=== PATIENT | female | born 1955 ===

== ENCOUNTER 2017-04-01 06:00 | Day surgery (SDC) | payer MEDICARE, MEDICAID ==
[2017-03-22 11:41] VITALS: BMI 25.2
[2017-04-01 06:26] VITALS: RESP 20
--- NOTE | 2017-04-01 06:37 | CP.PCM.PN ---
Subjective - Date & Time of Evaluation Date of Evaluation: 04/01/17 Time of Evaluation: 06:45 - Subjective Subjective: 62 year old female present for surgical correction for painful right ankle, secondary to traumatic sprain. Pt has failed refief with conservative methods and is in need for surgical intervention. Pt grades pain a 6/10 at its peak during ambulation and a 4/10at rest, all pain localized to lateral ankle. Pt states she has been NPO since 11:30 pm. Pt denies recent f/c/cp/sob/n/v. Objective - Vital Signs/Intake and Output Vital Signs (last 24 hours): Temp Pulse Resp BP Pulse Ox 98.6 F 76 20 147/81 100 04/01/17 06:25 04/01/17 06:27 04/01/17 06:25 04/01/17 06:25 04/01/17 06:25 - Constitutional Appears: Well, Non-toxic, No Acute Distress - Head Exam Head Exam: ATRAUMATIC, NORMAL INSPECTION - Eye Exam Eye Exam: EOMI, Normal appearance - ENT Exam ENT Exam: Mucous Membranes Moist, Normal Exam - Respiratory Exam Respiratory Exam: NORMAL BREATHING PATTERN. absent: Chest Wall Tenderness, Decreased Breath Sounds - Cardiovascular Exam Cardiovascular Exam: REGULAR RHYTHM. absent: Tachycardia - Extremities Exam Additional comments: Right leg focused. VASC: DP an PT pulses are fully palpable graded 3/4. Temperature runs warms to cool within normal limits. Localized non-pitting edema at the level of the ankle joint. DERM: No open wounds lesions, hyper-pigmentations, or inter-digital macerations. NEURO: Protective sensation grossly intact. MUSK: Tenderness to light palpation along lateral fibula and along Calcanela- fibular ligament course. Pain illicited on stress inversion of lateral ankle. Mild ankle end range of motion. - Neurological Exam Neurological Exam: Alert, Awake, Oriented x3 - Psychiatric Exam Psychiatric exam: Normal Affect, Normal Mood Assessment and Plan - Assessment and Plan (Free Text) Assessment: 62 year old female with ankle joint synovitis and lateral ankle instability. Plan: Pt was seen and examined in SDS Pt NPO status was confirmed All Pre-op testing and clearance was in the chart Pt has exhausted all conservative treatment at this time and is opting for surgical intervention Pt was explained procedure and post-operative course All pt's questions were answered to satisfaction No guarantees were made Pt understands all risks, benefits and complications of procedure Pt will follow-up with Dr. Suárez.
--- NOTE | 2017-04-01 06:37 | CP.SDSHP ---
Same Day Surgery H & P - History Proposed Procedure: Right Ankle arthroscopy, Modified Brostrom stabalization, and Peroneal Repair Pre-Op Diagnosis: Right ankle lateral ankle stablization. - Previous Medical/Surgical History Cardiac: Hypertension Pulmonary: Asthma Endocrine/Metabolic: Obesity, Other (Hyperlipedemia, hypercholesterolemia) Pain: 6.Severe Pain Previous Surgical History: Fallopian Tubual ligation - Allergies Allergies: Allergies No Known Allergies Allergy (Verified 03/25/17 06:40) - Current Medications Current Medications: Plavix Simvistatin Losartan - Physical Exam Vital Signs: Vital Signs 04/01/17 04/01/17 06:25 06:27 Temperature 98.6 F Pulse Rate 76 76 Respiratory 20 Rate Blood Pressure 147/81 O2 Sat by Pulse 100 Oximetry Mental Status: Alert & Oriented x3 Neuro: WNL Heart: WNL Lungs: WNL GI: WNL - {Optional Preform as Required} Integument: WNL Ortho: Other (Tenderness to light palpation along lateral fibula and along Calcanela-fibular ligament course. Pain illicited on stress inversion of lateral ankle. Mild ankle end range of motion.) - Impression Impression: Pt was seen and examined in SDS. Pt NPO status was confirmed. All Pre-op testing and clearance was in the chart. Pt has exhausted all conservative treatment at this time and is opting for surgical intervention. Pt was explained procedure and post-operative course. All pt's questions were answered to satisfaction. No guarantees were made. Pt understands all risks, benefits and complications of procedure. Pt will follow-up with Dr. Suárez. Pt. Evaluated Today:Candidate for Anesthesia & Procedure: Yes Short Stay Discharge - Short Stay Discharge Admitting Diagnosis/Reason for Visit: S82.64XA S93.491A S93.411A M65.871 Disposition: HOME/ ROUTINE Referrals: Bhavik Myers [Primary Care Provider] - Quirino Suárez MD [Staff Provider] - Follow-up: In office within 1 week. Additional Instructions (Diet, Activity): Patient in good/stable condition for discharge home. Pt to resume medications per medical reconciliation. Resume regular diet. Please keep dressing clean, dry, & intact to surgical site, use plastic bag over bandage for showering, wear post op shoe at all times when ambulating, call clinic if you see signs of infection (redness, swelling, malodor), please make an appointment to see Dr. Suárez in office within 1 week for post-op check. Progress Note/Discharge Note with Instructions: - Patient evaluated bedside in recovery s/p surgical procedure. - After surgical procedure patient in NAD - (+) Void, (+) Appetite - Capillary refill time <3s and NVSI intact. - Patient denies complaints at this time - Post operative instructions and plan of care explained to patient at length. - Pt. acknowledges understanding. - Patient stable for DC per podiatric surgery
[2017-04-01] MEDS ORDERED: Lactated Ringer's 1,000 ML IV ONE ×2 (06:44→09:57)
[2017-04-01] MEDS ORDERED: Propofol 10 mg/ml Inj (20 ML) ONE (06:59)
[2017-04-01] MEDS ORDERED: Midazolam 2 MG/2 ML VIAL ONE (06:59)
[2017-04-01] MEDS ORDERED: Succinylcholine 200 mg/10 ml Inj IV ONE (07:00)
[2017-04-01] MEDS ORDERED: ePHEDrine 50 mg/ml Inj ONE (07:00)
[2017-04-01] MEDS ORDERED: Lidocaine 1% Inj (20ml) ONE (07:18)
[2017-04-01] MEDS ORDERED: Bupivacaine HCl 0.5% PF (30 ml) Inj ONE ×2 (07:25→10:17)
[2017-04-01] MEDS ORDERED: Bupivacaine 0.25%-Epinephrine 1:200,000 (30 ml) Inj ONE (07:25)
[2017-04-01] MEDS ORDERED: Vasopressin 20 Units/ml Inj ONE (07:34)
[2017-04-01] MEDS ORDERED: Ropivacaine 0.5% 30ML IV ONE (07:34)
[2017-04-01] MEDS ORDERED: Rocuronium 10 mg/ml (5 ml) ONE (07:40)
[2017-04-01] MEDS ORDERED: Oxycodone/Acetaminophen 5/325 mg Tab PO PRN ×2 (10:36)
--- NOTE | 2017-04-01 10:40 | PCM.SURG1 ---
Surgeon's Initial Post Op Note - Surgeon's Notes Surgeon: Dr. Suárez, DPM Environmental Solutions Engineer: Dr. Abdelrahman Callaway,PGY3; Shmuel Hanks, PGY3 Type of Anesthesia: General Endo, Block Regional (Popliteal) Anesthesia Administered By: Dr Merino Pre-Operative Diagnosis: Right ankle lateral ankle instability, peroneal injury , and ankle joint synovitis. Operative Findings: See dictation. Arthrex internal brace. Arthrex suture anchor. 5 cc of Platlet rich plasma Post-Operative Diagnosis: Right ankle lateral ankle instability, peroneus brevis tendonisis with partial longitudinal tear, and ankle joint synovitis. Operation Performed: Right ankle arthroscopy with debridement, peroneus brevis tendon repair, and lateral ankle stablaization. Specimen/Specimens Removed: None Estimated Blood Loss: EBL {In ML}: 5 Blood Products Given: N/A Drains Used: No Drains Post-Op Condition: Good Date of Surgery/Procedure: 04/01/17 Time of Surgery/Procedure: 08:20
[2017-04-01] MEDS ORDERED: HYDROmorphone 0.5 mg/0.5 ml ISec IVP PRN (10:41)
--- NOTE | 2017-04-01 10:48 | PCM.ANESB2 ---
Popliteal Nerve Block - Popliteal Nerve Block Date of Procedure: 04/01/17 Procedure Performed: Popliteal Nerve Block Right - Procedure Popliteal Nerve Block: This procedure was explained to the patient that it is for post-operative pain management. Consent was obtained after a thorough discussion with the patient regarding the benefits and possible complications of local anesthetic block of the sciatic nerve at the popliteal level. The patient was brought to the operating room and standard monitors are applied. Time-out was held with the circulating nurse to confirm the correct surgery and the appropriate block. After applying oxygen by nasal cannula and administering IV Sedation, patient's operative leg was gently raised and supported and the groove in between the biceps femoris and vastus lateralis muscles was carefully palpated. The skin approximately 8cm above the popliteal crease was then marked. The ultrasound transducer was then applied to the posterior thigh approximately 8cm above the popliteal crease in the transverse plane and the sciatic nerve before its division was visualized lateral to the popliteal artery and in between the bicep femoris and semimembranosus/semitendinosus muscles. After identification, the lateral portion of the thigh was prepped with Betadine solution three times and Lidocaine 1% was injected subcutaneously for topical anesthesia. At this point, a # 21 gauge Stimuplex insulated 4 inch needle was inserted into pre-marked area and advanced in a perpendicular direction. The needle was inserted above the ultrasound transducer in-plane towards the sciatic nerve in a [id number] direction. Needle advancement was performed carefully under direct ultrasound visualization. Nerve stimulator was used and dorsiflexion of the foot was elicited at a current of __0.3___ MA. After repeated negative aspiration, ___5__cc of ___0.5__ % ____Ropivacaine was injected and this was flowed with __15____ cc of ___0.5%___% ____Ropivacaine____ ____. Under ultrasound guidance the local anesthetics were observed tenting the epidural sheath and surrounding the roots of the sciatic nerve. The needle was removed intact and sterile dressing was applied. The patient tolerated the popliteal nerve block well with stable vital signs and was subsequently prepared for the surgery.
[2017-04-01 12:59] VITALS: O2SAT 100
[2017-04-01 13:39] VITALS: BP 144/68; PULSE 64; TEMP 97.8
--- NOTE | 2017-04-08 08:51 | OP ---
PROCEDURE DATE: 04/01/2017 SURGEON: Dr. Quirino Suárez. ASSISTANTS: Dr. Callaway, PGY-3; Dr. Hanks, PGY-1; and Felipe Viera, MS4. ANESTHESIOLOGIST: Dr. Merino. ANESTHESIA: General anesthesia. PREOPERATIVE DIAGNOSES: 1. Deep ankle pain, right ankle. 2. Right lateral ankle instability. 3. Right peroneal tendon tear/tendinitis. POSTOPERATIVE DIAGNOSES: 1. Deep ankle pain, right ankle. 2. Right lateral ankle instability. 3. Right peroneal tendon tear/tendinitis. NAME OF PROCEDURES: 1. Right ankle arthroscopy with debridement of pathologic tissue. 2. Lateral ankle stabilization with Arthrex internal brace system and Suture Taks. 3. Right peroneal brevis tendon repair. 4. Platelet rich plasma graft implantation, right peroneal brevis tendon. INDICATION: The patient is a 62-year-old female with the above-mentioned diagnoses. The patient has exhausted conservative treatment at this time and now requests surgical intervention. The patient has signed the consent after careful explanation of risks, benefits, complications, and alternatives for surgical procedure. No guarantees were given nor implied. The patient has been following with Dr. Suárez on an outpatient basis. She requests surgical intervention at this time. Her n.p.o. status was confirmed prior to taking her back to the operating room where she was given Ancef IV prior to the beginning of the procedure. PREPARATION: The patient was taken to the operating room and placed on the operating table in supine position. A well-padded thigh tourniquet was placed on the patient's right thigh. Once general anesthesia was achieved, the right lower extremity was prepped and draped in the usual sterile manner. Esmarch was utilized to exsanguinate the patient's right lower extremity. Pneumatic ankle tourniquet was inflated to 350 mmHg and the procedure began. PROCEDURE #1: RIGHT ANKLE ARTHROSCOPY WITH EXTENSIVE DEBRIDEMENT OF PATHOLOGIC TISSUE FOR DEEP ANKLE PAIN: Attention was directed to the anterior lateral aspect of the right ankle joint. A 20cc syringe was used with a 1:1 mixture of 10cc 0.5% marcaine plain and 10cc of 0.5% marcaine with epinephrine, was used to insuflate the right ankle joint just through the anterior lateral aspect. Once back pressure was noted into the syringe, a anterior medial portal was created, leaving the needle in the lateral site. The anterior portal was medial to the tibialis anterior tendon and the saphenous neurovascular bundle was avoided. Using a hemostat, the incision was deepened. The arthroscope was placed through the medial portal and triangulated to find the needle through the lateral aspect. Once the needle was identified, an incision was made to create the lateral portal. A hemostat was used to dissect deeper through the anterior lateral portal. An aggressive shaver was inserted into the lateral portal and identified by the scope. The shaver was used to debride any synovial tissue and fibrous bands identified. A thickened band was identified at the lateral shoulder of the ankle joint. It was debrided aggressively. The lateral proximal aspect of the talus was noted to be eroded and slightly inflamed. The rest of the ankle joint was irrigated and flushed out. The scope scanned the medial and lateral gutters and the surface of the joint. PROCEDURE #2: RIGHT LATERAL ANKLE STABILIZATION WITH ARTHREX INTERNAL BRACE SYSTEM AND SUTURE TAKS FOR LATERAL ANKLE INSTABILITY. Attention was directed to the lateral aspect of the right ankle. Using a skin marker, the lateral fibula was marked out and an incision line was created medial to it. Using a #15 blade, an incision was made through the dermis. The incision was carried through deeper tissues using sharp and blunt dissection. Once down to the capsule, a parallel incision was created using a #15 blade, through the capsule. The Anterior Talo-Fibular Ligament was identified. It was partially torn and frayed. The ligament was incised. The distal surface of the lateral malleolus and the talar neck were freed from any soft tissue. Utilizing the drill from the Arthrex internal brace system, The talar neck, away from the ankle joint, and the distal tip of the lateral malleolus were drilled. Next, the fibular drill was tapped half way and the talar neck was tapped fully. The internal brace was tapped and paddled into the talar neck and placed securely. The sutures were pulled through the capsule on the fibular side and set aside. At this time, an Arthrex suture james was placed into the lateral malleolus distal to the hole for the internal brace. The suture james was weaved through the capsule of the joint on both sides. A k-wire was cut and placed into the fibular hole for the internal brace and the capsule was sutured around the wire. A percutaneous incision was made, using a #15 blade, over the drill hole for the internal brace on the fibula and the internal brace was tapped into it. We ensured a hemostat was placed underneath the internal brace to prevent overtightening. It was noted the internal brace was situated in the anatomical position of the ATFL. The remaining internal brace was cut and passed off the operative field. The remaining suture james was utlized to repair the extensor retinaculum. The wound was irrigated with copious amounts of sterile normal saline. The subcutaneous tissues were reapproximated with 3-0 vicryl sutures and the subcutaneous tissues were approximated with 4-0 monocril sutures. PROCEDURE #3: RIGHT PERONEAL BREVIS TENDON REPAIR OF A LONGITUDINAL TEAR AT THE INSERTION. Attention was directed to the lateral aspect of the patient's foot. An incision line was marked utilizing the skin marker. The path followed the peroneal brevis tendon from the distal posterior aspect of the lateral malleolus to the base of the fifth metatarsal - at the insertion of the peroneus brevis tendon. Utilizing a #15 blade, an incision was made. Deeper dissection was continued down, taking care to identify and retract neurovascular structures. The sural nerve was identified. It looked wavy and thin. The sural nerve was retracted distally out of the operative site. The peroneus brevis tendon was identified and the sheath was incised. At the insertion of the tendon, it was noted that the tendon was discolored-yellowish and lost its normal shiny look. The tendon was slightly thickened in width as well. There was a visible longitudinal tear just proximal to the insertion. Using a 3-0 vicryl suture, the tendon was tubularized distal to proximal in a continuous locking type technique. The wound was irrigated with copious amounts of sterile normal saline. PROCEDURE #4: PLATELET RICH PLASMA GRAFT IMPLANTATION, RIGHT PERONEAL BREVIS TENDON FOR PERONEUS BREVIS TENDINOSIS AND TEAR. Prior to administration of anesthesia, using an 18g needle hematopoietic cells were removed and combined with citrate to prevent coagulation. Once the cells were harvested, they were prepared in accordance with the proper guidelines and concentrated via centrifuge. The prepared PRP was implanted over the repaired peroneus brevis tendon. The subcutaneous tissues wee reapproximated with 3-0 and 4-0 vicryl sutures and the subcutaneous tissues was re-approximated with 4- 0 monocril suture in a running type pattern. POSTOPERATIVE CONDITION: The patient tolerated anesthesia and procedure well and was escorted to recovery room with vital signs stable and neurovascular status intact to the right lower extremity. This patient will follow with Dr. Suárez on an outpatient basis. Cristina Callaway DPM Quirino Suárez DPM cc: [id number] TT: 04/08/2017 07:37:09 ben GOVEA
== END 2017-04-01 12:27 | disposition home or self-care (01) ==
LOC: H.OPSURG 06:00
PROVIDERS: ATTEND Podiatrist
DX: M76.71 Peroneal tendinitis, right leg (principal); M25.371 Other instability, right ankle; M25.571 Pain in right ankle and joints of right foot; J45.909 Unspecified asthma, uncomplicated; E78.5 Hyperlipidemia, unspecified; I10 Essential (primary) hypertension; E66.9 Obesity, unspecified; E78.00 Pure hypercholesterolemia, unspecified
CPT/HCPCS: 0232T; 28200; 29897; 29899; 97161; C1769; G8978; G8979; G8980; J0330; J0690; J2001; J2250; J2405; J2704; J3010; J7030; J7120